=== PATIENT | male | born 1975 | race Caucasian/White ===

== ENCOUNTER 2020-03-10 23:11 | Emergency (ER) | payer BC, SELFPAY ==
[2020-03-10 23:14] VITALS: BP 149/109; PULSE 76; RESP 20; TEMP 36.3; O2SAT 99
--- NOTE | 2020-03-10 23:28 | ED.WOUNDLAC ---
HPI - Wound/Laceration General Chief Complaint: Wound/Laceration Stated Complaint: laceration Time Seen by Provider: 03/10/20 23:13 Source: patient Mode of arrival: ambulatory History of Present Illness HPI narrative: This patient is a 44 year old male who presents for evaluation of an abdominal wound. He states he was using a tree automatic grinder operator when something jumped and he suffered a wound to his abdominal wall. [place]amedics at the seen cleaned wound. He is unsure of his last tetanus shot. Related Data Allergies Allergy/AdvReac Type Severity Reaction Status Date / Time No Known Allergies Verified 03/10/20 23:16 Review of Systems Review of Systems: All systems reviewed & are unremarkable except as noted in HPI and below PMFSH Past Medical History Medical History (Updated 03/11/20 @ 01:48 by Gisele Strauss MD) Patient denies medical problems Surgical History Surgical History (Updated 03/10/20 @ 23:30 by Gisele Strauss MD) Hx of appendectomy Exam Const: General: no acute distress and alert Orientation/consciousness: patient oriented x3 Resp: Effort & Inspection: normal respiratory effort Auscultation: clear to auscultation bilaterally Cardio: Rate: regular rate Rhythm: regular rhythm GI: GI Palp: Yes Soft to palpation, No Tenderness to palpation present (GI), No Guarding due to palpation present (GI) and No Rigid due to palpation Other: left infraumilical linear wound with irregular edges into dermis, with small specks of black approximately 5 cm Neuro: General: patient oriented x3 and moves all extremities Course Vital Signs Vital signs: Vital Signs Temperature 97.4 F L 03/10/20 23:14 Pulse Rate 76 03/10/20 23:14 Respiratory Rate 03/10/20 23:14 Blood Pressure 149/109 H 03/10/20 23:14 Pulse Oximetry 99 03/10/20 23:14 Temperature 97.4 F L 03/10/20 23:14 Pulse Rate 88 03/11/20 02:04 Respiratory Rate 03/11/20 02:04 Blood Pressure 148/88 H 03/11/20 02:04 Pulse Oximetry 99 03/11/20 02:04 Procedures Laceration Laceration 1: Date: 03/11/20 Time: 01:46 Site: other (abdominal wall) Description: linear and irregular Depth: simple, single layer Local Anesthetic: lidocaine 1% and with epi Amount of anesthesia used (mL): 6 Pre-repair: irrigated, irrigated extensively and minor debridement (removed irregular shredded skin ) ====== Skin Level ====== Skin layer closed with: prolene Size (cm): 4-0 Number of sutures: 4 Technique: horizontal mattress ====== Subcutaneous Layer ====== ====== Muscle Layer ====== ====== Tendon Layer ====== Discharge Plan Discharge Clinical Impression: Laceration of abdominal wall Qualifiers: Encounter type: initial encounter Qualified Code(s): S31.119A - Laceration without foreign body of abdominal wall, unspecified quadrant without penetration into peritoneal cavity, initial encounter Patient Disposition: Home, Self-Care Condition: Stable Instructions: Antibiotic Form, Care For Your Stitches (ED), Acute Wounds (ED) Additional Instructions: Watch your wound for signs of infection. Keep clean and dry. You stitches will need to be removed in 10 days Follow-up/Referrals: Sandra Palma MD [Physician] - PHYSICIAN,LAMP CLEANER [Primary Care Provider] - Discharge Date/Time: 03/11/20 02:06
[2020-03-10] MEDS: TETANUS,DIPHTHERIA,AC PERTUSSIS ADULT (0.5 ML) BOOSTRIX IM (23:53)
[2020-03-11 02:04] VITALS: BP 148/88; PULSE 88; RESP 20; O2SAT 99
== END 2020-03-11 02:06 | disposition home or self-care (01) ==
PROVIDERS: Emergency Provider General Practice
DX: S31.115A Laceration without foreign body of abdominal wall, periumbilic region without penetration into peritoneal cavity, initial encounter (principal); W30.89XA Contact with other specified agricultural machinery, initial encounter; Z23 Encounter for immunization
CPT/HCPCS: 12002; 90471; 90715; 99282

== ENCOUNTER 2022-04-08 10:02 | Outpatient (CLI) | payer BC, SELFPAY ==
[2022-04-08 16:01] LABS: Free T4 Free Thyroxine 1.18 ng/mL (0.78-2.19)
[2022-04-08 17:28] LABS: Alanine Aminotransferase 23 U/L (6-50); Alkaline Phosphatase 87 U/L (38-126); Aspartate Amino Transferase 39 U/L (17-59); Bilirubin,Total 0.9 mg/dL (0.2-1.3); Cholesterol 163 mg/dL (0-200); HDL Direct 36 mg/dL; Triglycerides 153 mg/dL (<150)
[2022-04-08 17:40] LABS: LDL Cholesterol Direct 85 mg/dL
[2022-04-08 17:59] LABS: Total Triiodothyronine (T3) 1.29 NG/ML (0.97-1.69)
[2022-04-11 04:04] LABS: Thyroid Peroxidase Antibodies <1 IU/mL (<9)
== END 2022-04-08 10:03 | disposition home or self-care (01) ==
LOC: ANHLAB 10:05
PROVIDERS: PCP Nurse Practitioner Adult Health; Visit Provider Nurse Practitioner Adult Health
DX: E78.1 Pure hyperglyceridemia (principal); R94.6 Abnormal results of thyroid function studies
CPT/HCPCS: 36415; 80061; 80076; 84439; 84480; 86376

== ENCOUNTER 2024-03-15 14:49 | Outpatient (CLI) | payer BC, SELFPAY ==
[2024-03-15 19:40] LABS: Alanine Aminotransferase 32 U/L (6-50); Albumin Level 4.3 g/dL (3.5-5.1); Alkaline Phosphatase 85 U/L (38-126); Anion Gap 8 mmol/L (4-12); Aspartate Amino Transferase 39 U/L (17-59); Bilirubin,Total 0.8 mg/dL (0.2-1.3); Blood Urea Nitrogen 12 mg/dL (9-20); Calcium 8.9 mg/dL (8.4-10.2); Carbon Dioxide 25 mmol/L (22-30); Chloride 107 mmol/L (98-107); Cholesterol 159 mg/dL (0-200); Estimated Glomerular Filt Rate > 60; Glucose 81 mg/dL (65-110); HDL Direct 43 mg/dL; Sodium 140 mmol/L (137-145); Triglycerides 123 mg/dL (<150)
[2024-03-15 19:46] LABS: Basophils Percent Auto 0.5 % (0.2-1.2); Eosinophils Absolute Auto 0.2 K/mm3 (0-0.3); Eosinophils Percent Auto 2.1 % (0-4.4); Hematocrit 45.5 % (42.0-52.0); Hemoglobin 15.5 g/dL (14.0-18.0); Immature Granulocyte Absolute 0.02 K/mm3 (0.00-0.031); Immature Granulocyte Percent A 0.3 % (0-0.5); Lymphocytes Absolute Auto 1.97 K/mm3 (0.9-3.2); Lymphocytes Percent Auto 26.1 % (18.3-44.2); Mean Corpuscular HGB Conc 34.1 g/dl (32-36); Mean Corpuscular Volume 85.2 fl (80-100); Mean Platelet Volume 11.1 fl (7.4-10.4); Monocytes Absolute Auto 0.5 K/mm3 (0.1-0.6); Monocytes Percent Auto 7.2 % (2.6-8.5); Neutrophils Absolute Auto 4.8 K/mm3 (1.3-6.7); Neutrophils Percent Auto 63.8 % (45.5-73.1); Platelet Count Result 233 k/mm3 (150-375); Red Blood Count 5.34 M/mm3 (4.6-6.20); Red Cell Distribution Width 13.2 % (11.5-14.5); White Blood Count 7.6 K/mm3 (4.5-10.0)
[2024-03-15 19:52] LABS: LDL Cholesterol Direct 106 mg/dL
[2024-03-15 20:10] LABS: Prostate Specific Antigen 0.9 ng/mL (< OR = 4.0)
== END 2024-03-15 14:50 | disposition home or self-care (01) ==
LOC: ANHGOSHLAB 14:50
PROVIDERS: PCP Nurse Practitioner; Visit Provider Nurse Practitioner
DX: Z12.5 Encounter for screening for malignant neoplasm of prostate (principal); E66.9 Obesity, unspecified
CPT/HCPCS: 36415; 80053; 80061; 84153; 85025; G0103

== ENCOUNTER 2025-01-18 09:47 | Outpatient (CLI) | payer BC, SELFPAY ==
--- OUTSIDE RECORDS SUMMARY | 2025-01-18 10:47 | XMS_ITS | Clinical Summary ---
Author Organization [facility] Address [address] [place] [address] Care Team Providers Care Academic Administrator Name Role Phone Janelle Eng MAURILIO Primary Care Provider Allergies No known active allergies Medications clotrimazole (LOTRIMIN) 1 % cream clotrimazole 1 % topical cream APPLY TO THE AFFECTED AND SURROUNDING AREAS OF SKIN BY TOPICAL ROUTE 2 TIMES PER DAY IN THE MORNING AND EVENING Active fenofibrate 160 MG tablet fenofibrate 160 mg tablet Active Immunizations Immunization Administration Dates Next Due Tdap (Generic) 03/10/2020 Social History Tobacco Use Types Packs/Day Years Used Date Smoking Tobacco: Never Smokeless Tobacco: Never Alcohol Use Standard Drinks/Week Comments Yes 0 (1 standard drink = 0.6 oz pur e alcohol) ocassionally Sex and Gender Information Value Date Recorded Sex Assigned at Not on file Legal Sex Male 11:14 AM CDT Gender Identity Not on file Sexual Orientation Not on file Last Filed Vital Signs Vital Sign Reading Time Taken Comments Blood Pressure 130/90 07/08/2022 5:05 PM CDT Pulse 64 07/08/2022 5:05 PM CDT Temperature 36.2 C (97.2 F) 07/08/2022 4:40 PM CDT Respiratory Rate 12 07/08/2022 5:05 PM CDT Oxygen Saturation 97% 07/08/2022 5:05 PM CDT Inhaled Oxygen Concentration - - Weight 106.6 kg (235 lb) 06/26/2022 4:51 PM CDT Height 177.8 cm (5' 10 ) 06/26/2022 4:51 PM CDT Body Mass Index 33.72 06/26/2022 4:51 PM CDT Plan of Treatment Health Maintenance Due Date Last Done Comments Annual Physical 1977 Hepatitis C 1992 Hepatitis B Vaccines (1 of 3 - 19+ 3-dose series) 1993 Pneumococcal Vaccine: 50+ Years (1 of 1 - PCV) 2024 Zoster Vaccines (1 of 2) 2024 COVID-19 Vaccine (1 - 2023-2 5 season) 2024 DTaP, Tdap and Td Vaccines ( 2 - Td or Tdap) 03/10/2030 03/10/2020 Colorectal Cancer Screening Colonoscopy (10 Years) 07/08/2032 07/08/2022, 07/08/2022 Meningococcal B Vaccine Aged Out No l onger eligible based on patient's age to complete this topic Meningococcal Vaccine Aged Out No rowena kaleb eligible based on patient's age to complete this topic RSV Immunizations Under 20 Months Aged Out No longer eligible b ased on patient's age to complete this topic Procedures Procedure Name Priority Date/Time Associated Diagnosis Comments COLONOSCOPY Routine 07/08/2022 4:08 PM CDT from Last 3 Months or Most Recently Relevant to Health Maintenance Results * Colonoscopy (07/08/2022 4:08 PM CDT) Narrative James Ashraf MD - 07/08/2022 4:08 PM CDT James Ashraf MD 07/08/2022 4:48 PM JAMES ASHRAF MD, FACG, FACP COLONOSCOPY 07/08/2022 47-year-old male with history of Appy who presents for colonoscopy for screening for colon cancer. GI review of systems is negative. No endocarditis risk factors. No Known Allergies Medications: see list. Family history: negative for colon cancer. VITALS: Stable. LUNGS: Clear. HEART: RRR S1/S2 normal. ABDOMEN: NABS/NT. The procedure of colonoscopy with moderate sedation, its indications, alternatives of barium studies and risks including perforation, bleeding, infection, reaction to medication as well as the possible need for blood or surgery were discussed with the patient prior to the procedure. The patient voices understanding, agrees to proceed and provides informed consent. INDICATION: Screening for colon cancer. POST-OP: Two colon polyps removed. SEDATION: ASA 1, MP 2. Moderate sedation given by No W., RN & supervised by me. Versed 6 mg, Fentanyl 150 mcg IV given. Please see nurses notes for details. PREP: Good. With the patient in the left lateral decubitus position, the Olympus [id number] colonoscope was introduced into the rectum and advanced easily to the Terminal Ileum. Careful inspection of the mucosa was made upon insertion and withdrawal of the endoscope. FINDINGS: Terminal ileum: distal 5 cm normal. Cecum, Transverse, Sigmoid and Rectum including retroflexion normal. Ascending colon: 1.2 cm sessile polyp removed with snare polypectomy without bleed. Descending colon: 1.0 cm sessile polyp removed with snare polypectomy without bleed. No masses, AVMs, colitis or diverticulosis seen. No complications, blood loss or implants. ASSESSMENT AND PLAN: Two polyps removed: if adenomatous repeat colonoscopy in three years, otherwise screening colonoscopy in 10 years. Thank you for allowing me to care for your patient. He will follow-up with HIMANSHU Pereira as needed. James Asharf M.D. Cc: HIMANSHU Pereira James Ashraf MD GI PROCEDURE ORDERABLES Fin al Result from Last 3 Months or Most Recently Relevant to Health Maintenance Insurance [facility] Care Teams Academic Administrator Relationship Specialty Start Date End Date Janelle Eng APRN [facility] [address] [place] [address] PCP - General NURSE PRACTITIONER 01/09/25
--- OUTSIDE RECORDS SUMMARY | 2025-01-18 10:47 | XMS_ITS | Encounter Summary ---
Author Organization [facility] Address [address] [place] [address] Care Team Providers Care Straight Truck Driver Name Role Phone Amauryoctavio Pura HIMANSHU Primary Care Provider [phone] Janelle Eng APRN Primary Care Provider [phone] Encounter Details Date Type Department Care Team (Late st Contact Info) Description 07/04/2022 Prep for Procedure [facility] [place], [place] [id number] James Ashraf MD 3 [facility] Alex [address] [place] [id number] Social History Tobacco Use Types Packs/Day Years Used Date Smoking Tobacco: Never Smokeless Tobacco: Never Alcohol Use Standard Drinks/Week Comments Yes 0 (1 standard drink = 0.6 oz pur e alcohol) ocassionally Sex and Gender Information Value Date Recorded Sex Assigned at Not on file Legal Sex Male 11:14 AM CDT Gender Identity Not on file Sexual Orientation Not on file COVID-19 Exposure Response Date Recorded In the last 10 days, have yo u been in contact with someone who was confirmed or suspected to have Coronavirus/COVID-19? No / Unsure 06/26/2022 4:52 PM CDT documented as of this encounter Plan of Treatment Not on file documented as of this encounter Visit Diagnoses Diagnosis Encounter for screening colonoscopy- Primary Special screening for malignant neoplasms, colon documented in this encounter Additional Health Concerns Infection Onset Date Last Indicated Resolved Time COVID-19 Rule Out 07/04/2022 07/04/2022 07/04/2022 10:59 AM CDT COVID-19 Rule Out 07/04/2022 07/04/2022 07/04/2022 7:34 PM CDT documented as of this encounter Care Teams Straight Truck Driver Relationship Specialty Start Date End Date Pura Pereira NP [address] [place] [address] PCP - General NURSE PRACTITIONER 07/08/22 01/08/25 Janelle Eng APRN [address] [facility] [address] [place] [address] PCP - General NURSE PRACTITIONER 01/09/25 documented as of this encounter
--- NOTE | 2025-01-19 17:40 | WPDHOMESLEEP ---
Sleep Study - Home Unattended Date of Study: 01/18/25 Ordering Provider: Janelle Eng NP Interpreting Provider: Antionette Mahan MD Home Sleep Study Type: Watch PAT Height: 1.78 m Weight: 99.79 kg Body Mass Index: 31.5 Neck Circumference (inches): 17 [place]: 2 Reason for Sleep Study Loud snoring, witnessed apnea, daytime fatigue Sleep History Raul Wilson is a 49-year-old man who has loud snoring, choking gasping at night, and witnessed apneic episodes. He always wakes up with a dry mouth. He has difficulty breathing when he sleeps on his back. He wakes twice at night to urinate. He does not have nocturnal heartburn or awaken with a morning headache. He does not have difficulty falling asleep. He does not take any sleeping aids. He is not anxious about his sleep. He is never refreshed on waking. He does not have drowsy driving. He does not have muscle weakness with strong emotion. He does not feel paralyzed on waking or falling asleep. He does not have vivid dreamlike scenes upon awakening or falling asleep. He does not have dreams during daytime naps. He does not clench his teeth or grind his teeth. He does have excessive kicking and jerking of his legs. He does not have restless uncomfortable feelings in his legs. He often wakes up before his scheduled wake time. He feels fatigued in the afternoon. He always feels that he could take a nap around 2:00 p.m.. He has sinus problems with sinus infection and excessive amounts of mucus every morning. He has postnasal drainage through out the day. Normal bedtime is 8:30 p.m., falling asleep within 30 minutes, spending 8 hours in bed, 8 hours asleep. He keeps the same schedule on weekends. He takes planned naps on his days off in the afternoon, and a nap may last 1-2 hours. He feels refreshed after a nap. Habits: Tobacco : none Caffeine: 1-2 cups daily Alcohol: rare Recreational substances: none PMFSH Past Medical History Medical History Patient denies medical problems Surgical History Surgical History Hx of appendectomy Social History Social History Smoking status: Never smoker Alcohol intake: current Substance use: never Substance use type: does not use Do You Feel Safe in your Home?: Yes Lack of Transportation: No Lack of Food: Never True Current Housing: I Have Housing Concerned About Future Housing: No Difficulty Paying Gas/Electric Bills: No Difficulty Paying for Meds: No Currently Unemployed: No Education: High School Diploma/GED Difficulty w/ Childcare or Family Care: No Medications Home Medications ?Medication ?Instructions ?Recorded ?Confirmed ?Type tadalafil 10 mg tablet (Cialis) 10 mg PO DAILY PRN sexual activity 02/11/24 01/06/25 Rx #30 tabs Sleep Procedure The sleep study was completed using Matrix Electronic MeasuringT a technically adequate device with seven channels: peripheral arterial tone, actigraphy, body position, snore, respiratory movement, pulse oximetry, sleep staging, and heart rate. Prior to using the device, the patient received verbal and written instructions for its application and was provided with the help desk phone number for additional telephonic instruction with 24-hour availability of qualified personnel to answer questions. Sleep Architecture The total recording time is 8 hrs, 51 min. The total sleep time is 8 hrs, 20 min. Sleep latency is 17 minutes. REM latency is 65 minutes. The patient had 5 episodes of waking. Sleep architecture shows 13.0% deep sleep, 61.7% light sleep, and 25.3% stage REM. The patient spent 46.1% of total sleep time in the supine position. Sleep efficiency was 94%. Respiratory Analysis The overall AHI (pAHI 3%:) is 31.6. The central AHI is 0.2. The AHI was 31.8 in NREM and 31.1 in REM sleep. The AHI was 47.8 in Supine and 17.9 in Non-supine sleep. Percent of Sunny Caraballo respirations is 0.0. Oximetry Data The oxygen desaturation index (DALILA 4%:) is 20.6. The mean saturation is 94%, and the lowest saturation is 78%. Time spent with saturation < 88% is 4.3 minutes. Snoring Profile Snoring average intensity is 47 dB. The patient snored above 45 decibels for 226.0 minutes, 45.2% of sleep time. Cardiac Profile The average pulse rate is 66 beats per minutes. The lowest pulse rate is 41 bpm. The highest pulse rate is 136 bpm. Cardiac Rhythm Analysis in Sleep does not indicate suspected atrial fibrillation. Assessment and Plan Assessment and Plan (1) Obstructive sleep apnea: Code(s): G47.33 - Obstructive sleep apnea (adult) (pediatric) Status: Acute Assessment and Plan: This home sleep test using WatchPat on 01/18/2025 shows severe obstructive sleep apnea, the apnea-hypopnea index is 31.6 using a 3% criteria, with desaturation to 78% and 4.3 minutes, 0.9% of the study spent below 88% saturation. He had moderate snoring. Events were worse in the supine position with a supine apnea-hypopnea index of 47.8. I recommend that this patient be prescribed Resmed AirSense 11 AutoPAP 5-15 cm H2O, CPAP mask/filters/tubing and humidifier chamber. This should be used with all episodes of sleep. Compliance should be reviewed within 31-90 days of starting therapy for usage greater than 4 hours per night greater than 70% of the nights. The patient should be asked about symptoms such as excessive daytime sleepiness, quality of sleep, decreased nocturia, increased mental functioning such as memory, mood, and concentration. If the patient does not improve with Auto-PAP, I recommend a full night titration in the sleep lab with a sleep aid to use, if needed, to initiate and maintain sleep during testing. Consider prescribing Ambien 5 mg to 10 mg or Lunesta 2 mg to 3 mg. The patient should not take a nap on the day of the study. BMI is 31.6. Weight management is advised. Clinical data suggests that weight loss of 10% can reduce the severity of respiratory events and snoring and improve AHI by as much as 25%. Data The data obtained during this sleep study is adequate for interpretation. Certification This sleep study has been reviewed by a board certified sleep medicine physician.
[2025-01-19 18:42] VITALS: BMI 31.5
== END 2025-01-19 10:06 | disposition home or self-care (01) ==
LOC: ANHCSM 09:50
PROVIDERS: PCP Nurse Practitioner; Visit Provider Nurse Practitioner
DX: G47.31 Primary central sleep apnea (principal)
CPT/HCPCS: 95800

== ENCOUNTER 2025-02-10 14:35 | Outpatient (CLI) | payer BC, SELFPAY ==
[2025-02-10 18:18] LABS: Basophils Percent Auto 0.4 % (0.2-1.2); Eosinophils Absolute Auto 0.2 K/mm3 (0-0.3); Eosinophils Percent Auto 1.9 % (0-4.4); Immature Granulocyte Absolute 0.03 K/mm3 (0.00-0.031); Immature Granulocyte Percent A 0.4 % (0-0.5); Lymphocytes Absolute Auto 1.97 K/mm3 (0.9-3.2); Lymphocytes Percent Auto 24.9 % (18.3-44.2); Mean Corpuscular HGB Conc 33.3 g/dl (32-36); Mean Corpuscular Hemoglobin 28.3 pg (26-34); Mean Platelet Volume 10.7 fl (7.4-10.4); Monocytes Absolute Auto 0.6 K/mm3 (0.1-0.6); Monocytes Percent Auto 7.3 % (2.6-8.5); Neutrophils Absolute Auto 5.2 K/mm3 (1.3-6.7); Neutrophils Percent Auto 65.1 % (45.5-73.1); Platelet Count Result 256 k/mm3 (150-375); Red Blood Count 5.65 M/mm3 (4.6-6.20); Red Cell Distribution Width 13.5 % (11.5-14.5); White Blood Count 7.9 K/mm3 (4.5-10.0)
[2025-02-10 18:45] LABS: Alanine Aminotransferase 32 U/L (6-50); Albumin Level 4.4 g/dL (3.5-5.1); Alkaline Phosphatase 96 U/L (38-126); Anion Gap 7 mmol/L (4-12); Aspartate Amino Transferase 40 U/L (17-59); Blood Urea Nitrogen 14 mg/dL (9-20); Calcium 9.1 mg/dL (8.4-10.2); Carbon Dioxide 28 mmol/L (22-30); Chloride 105 mmol/L (98-107); Cholesterol 158 mg/dL (0-200); Estimated Glomerular Filt Rate > 60; Glucose 71 mg/dL (65-110); HDL Direct 43 mg/dL; Potassium 4.3 mmol/L (3.4-5.0); Sodium 140 mmol/L (137-145); Triglycerides 108 mg/dL (<150)
[2025-02-10 18:56] LABS: LDL Cholesterol Direct 89 mg/dL
[2025-02-10 19:17] LABS: Prostate Specific Antigen 0.8 ng/mL (< OR = 4.0)
== END 2025-02-10 14:36 | disposition home or self-care (01) ==
LOC: ANHGOSHLAB 14:36
PROVIDERS: PCP Nurse Practitioner; Visit Provider Nurse Practitioner
DX: Z12.5 Encounter for screening for malignant neoplasm of prostate (principal); G47.19 Other hypersomnia; R06.81 Apnea, not elsewhere classified; E66.9 Obesity, unspecified
CPT/HCPCS: 36415; 80053; 80061; 84153; 84443; 85025; G0103

== ENCOUNTER 2025-05-30 00:13 | Day surgery (SDC) | payer BC, SELFPAY ==
[2025-05-19 09:58] VITALS: BMI 35.9
--- OUTSIDE RECORDS SUMMARY | 2025-05-30 00:16 | XMS_ITS | Encounter Summary ---
Author Organization [facility] Address [address] [place] [address] Care Team Providers Care Auditor In Charge Name Role Phone Amauryoctavio Pura HIMANSHU Primary Care Provider [phone] Janelle Eng APRN Primary Care Provider [phone] Encounter Details Date Type Department Care Team (Late st Contact Info) Description 07/04/2022 Prep for Procedure [facility] One Day Services ONE [place], [place] [id number] James Ashraf MD 3 [facility] Alex [address] [place] [id number] Social History Tobacco Use Types Packs/Day Years [...] documented as of this encounter Care Teams Auditor In Charge Relationship Specialty Start Date End Date Pura Pereira NP [address] [place] [address] PCP - General NURSE PRACTITIONER 07/08/22 01/08/25 Janelle Eng APRN [address] [facility] [address] [place] [address] PCP - General NURSE PRACTITIONER 01/09/25 documented as of this encounter
--- OUTSIDE RECORDS SUMMARY | 2025-05-30 00:16 | XMS_ITS | Clinical Summary ---
Author Organization [facility] Address [address] [place] [address] Care Team Providers Care Geography Faculty Member Name Role Phone Janelle Eng MAURILIO Primary Care Provider [phone] Allergies No known active allergies Medications clotrimazole [...] 4:51 PM CDT Height 177.8 cm (5' 10) 06/26/2022 4:51 PM CDT Body Mass Index 33.72 06/26/2022 4:51 PM CDT Plan of Treatment Health Maintenance Due Date Last Done Comments Annual Physical 1977 Hepatitis C 1992 Hepatitis B Vaccines (1 of 3 - 19+ 3-dose series) 1993 Pneumococcal Vaccine: 50+ Years (1 of 1 - PCV) 2024 Zoster Vaccines (1 of 2) 2024 COVID-19 Vaccine (1 - 2023-2 5 season) 2025 DTaP, Tdap and Td Vaccines ( 2 [...] the left lateral decubitus position, the Olympus [id number] colonoscope was introduced into the rectum and [...] follow-up with HIMANSHU Pereira as needed. James Ashraf M.D. Cc: HIMANSHU Pereira James Ashraf MD GI PROCEDURE ORDERABLES Fin al Result from Last 3 Months or Most Recently Relevant to Health Maintenance Insurance [facility] Care Teams Geography Faculty Member Relationship Specialty Start Date End Date Janelle Eng APRN [facility] [facility] [address] [place] [address] PCP - General NURSE PRACTITIONER 01/09/25
[2025-05-30 06:53] VITALS: BP 131/102; PULSE 67; RESP 18; TEMP 36.3; O2SAT 98
[2025-05-30] MEDS: LACTATED RINGERS 1,000 ML 150 ML IV CONT (07:02)
--- NOTE | 2025-05-30 07:06 | P.PNAN_ITS ---
Anes - Initial Pre Proc Eval Procedure: Operation Date: 05/30/25 08:00 Proposed Procedures p Screening Colonoscopy - Giovanni Valentine MD Date/Time: 05/30/25 07:06 Surgeon: Giovanni Valentine MD Pre Op Diagnosis: Screening Patient Data Age: 50 Gender: M Height: 1.78 m Weight: 108.1 kg Last Vital Signs Temp 36.3 C L 05/30/25 06:53 Pulse 67 05/30/25 06:53 Resp 18 05/30/25 06:53 BP 131/102 H 05/30/25 06:53 Pulse Ox 98 05/30/25 06:53 O2 Del Method Room Air 05/30/25 06:53 Allergies Allergy/AdvReac Type Severity Reaction Status Date / Time No Known Allergies Allergy Verified 05/30/25 06:51 Home Medications ?Medication ?Instructions ?Recorded ?Confirmed ?Type CPAP mask #1 ea 03/16/25 03/16/25 Rx Patient hx anesthesia problems: none Family hx anesthesia problems: none Results Review: All pre-operative results and documents have been reviewed as part of the pre- operative evaluation. [facility] Past Medical History Medical History (Updated 05/30/25 @ 07:07 by Andres Romano MD) Personal history of colonic polyps Obesity (BMI 30-39.9) Obstructive sleep apnea Surgical History Surgical History Hx of appendectomy Social History Social History Smoking status: Never smoker Alcohol intake: current Substance use: never Substance use type: does not use Do You Feel Safe in your Home?: Yes Lack of Transportation: No Lack of Food: Never True Current Housing: I Have Housing Concerned About Future Housing: No Difficulty Paying Gas/Electric Bills: No Difficulty Paying for Meds: No Currently Unemployed: No Education: High School Diploma/GED Difficulty w/ Childcare or Family Care: No Anes - Eval Final PreProcedure Day of Procedure 05/30/25 07:06 Patient weight: obese Heart: regular rate and rhythm Lungs: clear to auscultation Airway: Mallampati scale class II Neurological: alert and oriented Last oral intake: >/= 8 hours ASA classification: III Emergent: no Anesthetic plan: proceed Anesthesia type and monitoring: general GIVS and standard monitoring Results Review: All pre-operative results and documents have been reviewed as part of the pre- operative evaluation. Informed Consent: The patient's anesthetic plan and its attendant risks and benefits were discussed with the patient/family/POA. Questions were solicited and answers provided to the satisfaction of the patient/family/POA.
--- NOTE | 2025-05-30 07:13 | P.HP_ITS ---
H&P: HPI History of Present Illness Date/Time: 05/30/25 07:13 Chief Complaint: history of colon polyps Narrative: The patient has a history of colonic polyps, the last colonoscopy was 3 years ago. Review of Systems Review of Systems: All systems reviewed & are unremarkable except as noted in HPI and below [facility] Past Medical History Medical History (Updated 05/30/25 @ 07:07 by Andres Romano MD) Personal history of colonic polyps Obesity (BMI 30-39.9) Obstructive sleep apnea Surgical History Surgical History Hx of appendectomy Social History Social History Smoking status: Never smoker Alcohol intake: current Substance use: never Substance use type: does not use Do You Feel Safe in your Home?: Yes Lack of Transportation: No Lack of Food: Never True Current Housing: I Have Housing Concerned About Future Housing: No Difficulty Paying Gas/Electric Bills: No Difficulty Paying for Meds: No Currently Unemployed: No Education: High School Diploma/GED Difficulty w/ Childcare or Family Care: No Meds Home Medications and Allergies Home Medications ?Medication ?Instructions ?Recorded ?Confirmed ?Type CPAP mask #1 ea 03/16/25 03/16/25 Rx Allergies Allergy/AdvReac Type Severity Reaction Status Date / Time No Known Allergies Allergy Verified 05/30/25 06:51 Vital Signs Vital Signs - 24 hr 05/30/25 06:53 Temperature 97.4 F L Pulse Rate 67 Respiratory Rate 18 Blood Pressure 131/102 H Pulse Oximetry 98 Oxygen Delivery Room Air Exam Const: General: cooperative and healthy appearing Resp: Effort & Inspection: normal respiratory effort and able to speak in complete sentences Auscultation: clear to auscultation bilaterally Cardio: Rate: regular rate Rhythm: regular rhythm GI: Inspection: normal to inspection GI Palp: No No hepatosplenomegaly present Auscultation: normal bowel sounds Rectal Exam: deferred Skin: General skin exam: normal color Psych: Appearance: grossly normal Mental Status: mental status grossly normal Assessment and Plan Assessment and plan (1) Screening for colon cancer: Code(s): Z12.11 - Encounter for screening for malignant neoplasm of colon Status: Acute Assessment and Plan: The patient is deemed a good candidate for the procedure. Consent signed. Will proceed.
[2025-05-30 08:21] VITALS: BP 123/72; PULSE 61; RESP 17; O2SAT 98
--- NOTE | 2025-05-30 08:21 | S_PTH ---
PATIENT: Raul Wilson Jr. LOC: [facility] U#:[id number] AGE/SX: 50/M ROOM: RE05/30/[address]: Giovanni Valentine MD : 1975 BED: DIS: 05/30/2025 SPEC #: [id number] RECD: 05/30/25 09:02 STATUS: JENIFER REQ #: [id number] AZEEM: 05/30/25 08:[address]: Giovanni Valentine DEPT: [facility] Surgical RECD BY: Elvia Armendariz ENTERED: 05/30/25 09:02 SP TYPE: Surgical OTHR DR: Mirian Gale DO Tissues: A - Colon Polypectomy B - Colon Polypectomy Procedures: Hematoxylin and Eosin Stain Gross and Microscopic Level 4
[2025-05-30 08:31] VITALS: BP 129/82; PULSE 59; RESP 16; O2SAT 98
[2025-05-30 08:41] VITALS: BP 142/93; PULSE 60; RESP 18; O2SAT 99
== END 2025-05-30 08:54 | disposition home or self-care (01) ==
PROVIDERS: PCP Family Medicine; Referring Provider Nurse Practitioner; Visit Provider Internal Medicine Gastroenterology
PROC: 0DJD8ZZ Inspection of Lower Intestinal Tract, Via Natural or Artificial Opening Endoscopic (ICD-10-PCS; CPT 45378; principal; 2025-05-30 08:00)
DX: Z12.11 Encounter for screening for malignant neoplasm of colon (principal); D12.4 Benign neoplasm of descending colon; D12.5 Benign neoplasm of sigmoid colon; G47.33 Obstructive sleep apnea (adult) (pediatric); E66.9 Obesity, unspecified; Z68.34 Body mass index [BMI] 34.0-34.9, adult; Z99.89 Dependence on other enabling machines and devices; Z98.890 Other specified postprocedural states
CPT/HCPCS: 45385; 88305; J2003; J2704; J7120